=== PATIENT | male | born 1965 | race Caucasian/White ===

== ENCOUNTER → 2025-06-22 | Outpatient (CLI) | payer OTHER, BC, SELFPAY ==
[2025-06-22 09:13] LABS: Glucose Estimated Average 114 mg/dL (80-131); Hemoglobin A1C 5.6 % Hgb (4.8-6.0)
[2025-06-22 09:19] LABS: Cardiac Risk Estimate 4.5 RATIO (4.0-6.7); Cholesterol 171 mg/dL (132-200); HDL Cholesterol 38 mg/dL (40-60); LDL Cholesterol,Calculated 89 mg/dL (0-130); Triglycerides 220 mg/dL (30-150)
== END | disposition home or self-care (01) ==
LOC: COPL 08:11
PROVIDERS: PCP Family Medicine; Referring Provider Internal Medicine Cardiovascular Disease; Visit Provider Internal Medicine Cardiovascular Disease
DX: I10 Essential (primary) hypertension (principal)
CPT/HCPCS: 36415; 80061; 83036